=== PATIENT | female | born 1965 | race Hispanic/Latino ===

== ENCOUNTER 2021-07-28 13:49 | Outpatient (CLI) | payer SELFPAY | END 2021-07-28 13:50 | disposition home or self-care (01) | LOC: CSHLAB 13:49 | PROVIDERS: ATTEND Student in an Organized Health Care Education/Training Program | DX: Z01.818 Encounter for other preprocedural examination (principal); Z20.822 Contact with and (suspected) exposure to COVID-19; D06.9 Carcinoma in situ of cervix, unspecified | CPT/HCPCS: 80053; 80076; 83036; 84703; 85027; 86850; 86900; 86901; 93005; 93010; U0003; U0005 ==

== ENCOUNTER 2021-10-13 11:55 | Outpatient (CLI) | payer SELFPAY | END 2021-10-13 11:56 | disposition home or self-care (01) | LOC: CSHLAB 11:55 | PROVIDERS: ATTEND Student in an Organized Health Care Education/Training Program | DX: Z01.818 Encounter for other preprocedural examination (principal); Z20.822 Contact with and (suspected) exposure to COVID-19 | CPT/HCPCS: 80048; 80076; 83036; 84703; 85027; 86850; 86900; 86901; 87811; 93005; 93010 ==

== ENCOUNTER 2021-10-18 09:57 | Day surgery (SDC) | payer OTHER ==
[2021-10-13 13:24] LABS: Hemoglobin 13.2 g/dL (12.0-15.5); Mean Corpuscular HGB CONC 35.1 g/dL (32.0-36.0); Mean Corpuscular Hemoglobin 30.3 pg (27.0-33.0); Mean Corpuscular Volume 86.2 fl (81.6-98.3); Mean Platelet Volume 11.2 fl (7.4-10.4); Platelet Count 214 10x3/uL (150-450); RBC Distribution Width 12.5 % (11.5-14.5); Red Blood Cell (RBC) Count 4.36 10x6/uL (3.90-5.03)
[2021-10-13 13:32] LABS: BHCG - Serum Negative (NEGATIVE); Pregs Control Background? CLEAR/WHITE (CLR/WHITE); Pregs Control Bar Appear? YES (CONTROL BAR)
[2021-10-13 13:39] LABS: ALT (SGPT) 21 U/L (8-55); AST (SGOT) 21 U/L (5-34); Albumin 4.8 g/dL (3.5-5.0); Alkaline Phosphatase 63 U/L (40-110); Anion Gap 15 mmol/L (10-20); BUN (Urea Nitrogen) 14 mg/dL (9.8-20.1); Bilirubin, Direct 0.3 mg/dL (0.1-0.3); Calc. Creatinine Clearance 0 mL/min (70-130); Calcium 10.5 mg/dL (7.8-10.44); Carbon Dioxide 26 mmol/L (22-29); Chloride 103 mmol/L (98-107); Estimated GFR 95; Glucose 130 mg/dL (70-105); Potassium 3.9 mmol/L (3.5-5.1); Protein, Total 7.8 g/dL (6.0-8.3); Sodium 140 mmol/L (136-145)
[2021-10-13 16:25] LABS: Hemoglobin A1c 6.8 % (4.0-6.0)
[2021-10-16 15:35] VITALS: BMI 28.8
[2021-10-18] MEDS ORDERED: Gabapentin 300 MG CAP ONE (10:13)
[2021-10-18] MEDS ORDERED: CeleCOXIB 100 MG CAP ONE (10:13)
[2021-10-18] MEDS ORDERED: Lidocaine 1% MPF 2 ML VIAL ONE (10:13)
[2021-10-18] MEDS ORDERED: Famotidine/PF 20 mg/2ml Vial ONE (10:13)
[2021-10-18] MEDS ORDERED: metroNIDAZOLE 500 MG/100 ML BAG ONE ×2 (10:59→12:45)
[2021-10-18] MEDS ORDERED: CEFAZOLIN 2 GM VIAL ONE (11:12)
[2021-10-18] MEDS ORDERED: Lidocaine 2% PF 5 ML VIAL ONE (12:30)
[2021-10-18] MEDS ORDERED: Dexamethasone 4 mg/ml Vial ONE (12:30)
[2021-10-18] MEDS ORDERED: PROPOFOL 20 ML ONE (12:30)
[2021-10-18] MEDS ORDERED: Rocuronium Bromide 10 MG/ML (10ML VIAL) ONE (12:30)
[2021-10-18] MEDS ORDERED: Ondansetron PF 4 MG/2 ML Vial ONE (12:30)
[2021-10-18] MEDS ORDERED: Lidocaine 1% w/Epinephrine 1:100K 30 ML VIAL ONE (12:35)
[2021-10-18] MEDS ORDERED: HYDROmorphone 0.5 MG/0.5 ML SYRINGE ONE (12:44)
[2021-10-18] MEDS ORDERED: SUGAMMADEX SODIUM 200 MG/2 ML VIAL ONE (12:44)
[2021-10-18] MEDS ORDERED: Fentanyl 100 MCG/2 ML VIAL ONE (12:46)
[2021-10-18] MEDS ORDERED: METRONIDAZOLE IVPB SCH (13:00)
[2021-10-18] MEDS ORDERED: EPINEPHrine 1 MG/ML AMP ONE (13:10)
[2021-10-18] MEDS ORDERED: Labetalol HCl 100 MG/20 ML VIAL ONE (14:05)
== END 2021-10-18 17:00 | disposition home or self-care (01) ==
LOC: CSHSDC 09:57
PROVIDERS: ATTEND Student in an Organized Health Care Education/Training Program
PROC: 0UT27ZZ Resection of Bilateral Ovaries, Via Natural or Artificial Opening (ICD-10-PCS; principal; 2021-10-18)
PROC: 0UT97ZZ Resection of Uterus, Via Natural or Artificial Opening (ICD-10-PCS; principal; 2021-10-18)
PROC: 0UT77ZZ Resection of Bilateral Fallopian Tubes, Via Natural or Artificial Opening (ICD-10-PCS; principal; 2021-10-18)
DX: D06.9 Carcinoma in situ of cervix, unspecified (principal); I10 Essential (primary) hypertension; E78.5 Hyperlipidemia, unspecified; E11.9 Type 2 diabetes mellitus without complications; Z79.84 Long term (current) use of oral hypoglycemic drugs; Z79.899 Other long term (current) drug therapy; Z20.822 Contact with and (suspected) exposure to COVID-19
CPT/HCPCS: 36416; 80048; 80076; 83036; 84703; 85027; 86850; 86900; 86901; 87811; 88307; 88341; 88342; J0171; J0690; J1100; J1170; J2001; J2405; J2704; J3010; S0028